=== PATIENT | female | born 1980 | race Caucasian/White ===

== ENCOUNTER 2017-02-05 15:21 | Emergency (ER) | payer OTHER ==
[~2017-02-05] VITALS: Ht 170.2 cm; Wt 86.2 kg
--- NOTE | ~2017-02-05 | EKG ---
PATIENT: OSIEL ALVARES UNIT #: [id number] Ventricular Rate: 81 BPM Atrial Rate: 81 BPM P-R Interval: 150 ms QRS Duration: 78 ms Q-T Interval: 384 ms QTC Calculation(Bezet): 446 ms P [place]: 71 degrees Calculated R [place]: -20 degrees Calculated T [place]: 49 degrees Diagnosis Line: Normal sinus rhythm with sinus arrhythmia Diagnosis Line: Poor R wave progression questionable lead position Diagnosis Line: or body habitus Diagnosis Line: Borderline ECG Diagnosis Line: No previous ECGs available Diagnosis Line: Confirmed by GOOD CANNON MD ([id number]) on Diagnosis Line: 02/07/2017 4:53:03 PM INTERPRETING MD: BENJAMIN
--- NOTE | ~2017-02-05 | CR72 ---
[facility] A Service of [facility] & [facility] RADIOLOGY TEXT RESULTS PATIENT: OSIEL ALVARES LOCATION: [facility] : [birth year] UNIT #: [id number] AGE: [address]: Sid Stone MD SEX: F ORDER DR: [id number] [facility] [address] [place], [place] [address] [id number] MR#: [id number] Acc #: [id number] NAME: OSIEL ALVARES. : 1980 SEX: F STUDY DATE/TIME: 02/05/2017 16:14 UNIT: [facility] ROOM: STUDY DESCRIPTION: CR Chest Single View Portable Attending Physician: Sid Stone M.D. Ordering Physician: Sid Stone M.D. Primary Care Physician: Meliton Chi M.D. MEDICAL IMAGING REPORT This report is preliminary unless electronic signature is present EXAM Portable chest, 02/05/2017. HISTORY 36-year-old female with congestion for 1 week. Bilateral lower extremity edema. COMPARISON Chest, 12/28/2015. FINDINGS Frontal chest demonstrates clear lungs. No pleural effusion or pneumothorax. Heart size and mediastinum are normal. Pulmonary vasculature normal. IMPRESSION No acute cardiopulmonary findings. Dictated by... Mainor Zepeda M.D. THIS IS AN ELECTRONICALLY VERIFIED REPORT Mainor Zepeda M.D. at 02/07/2017 10:49 AM SHARONDA/mahnaz TD: 02/06/2017 16:56 JOB #: [id number] MEDICAL IMAGING REPORT Page 1 of 1 COPY
[~2017-02-05 15:21] MED LIST: BACTRIM DS TABL1 TA1 PO; KEFLEX500 M2 PO; SEROQUEL XR200 MG PO
[2017-02-05 17:23] LABS: POC - CKMB 1.1 ng/mL (0.0-7.9); POC - TROPONIN <0.05 ng/mL (<=0.05)
[2017-02-05 17:42] LABS: BASOPHIL% 0.6 % (0-2.5); EOSINOPHIL# 0.1 X10e3 (0-0.7); EOSINOPHIL% 1.2 % (0.0-7.0); HEMATOCRIT 39.7 % (35.0-45.0); HEMOGLOBIN 13.7 gm/dL (12.0-16.0); LYMPHOCYTE# 2.2 X10e3 (1.0-3.5); LYMPHOCYTE% 31.7 % (17.0-45.0); MEAN CELL VOLUME 93.6 FL (83-96); MEAN CORPUSCULAR HEMOGLOBIN 32.3 PG (28-34); MEAN CORPUSCULAR HGB CONC 34.4 g/dL (30-36); MEAN PLATELET VOLUME 7.3 FL (6.5-11.5); MONOCYTE# 0.6 X10e3 (0-1.0); MONOCYTE% 9.3 % (3.0-12.0); NEUTROPHIL# 3.9 X10e3 (1.5-7.1); NEUTROPHIL% 57.2 % (40-75); PLATELET COUNT 279 X10e3 (140-420); RED BLOOD COUNT 4.24 X10e (3.90-5.30); RED CELL DISTRIBUTION WIDTH 12.1 % (11.0-15.5); WHITE BLOOD COUNT 6.9 X10e3 (4.0-10.5)
[2017-02-05 17:45] LABS: DIFF IND NO
[2017-02-05 18:07] LABS: ALBUMIN SERUM 4.1 g/dL (3.5-5.0); BILIRUBIN, DIRECT 0.2 mg/dL (0.0-0.2); BILIRUBIN,INDIRECT 0.8 mg/dL (0.0-0.9); BUN/CREATININE RATIO 6.25; CALCIUM SERUM 9.3 mg/dL (8.4-10.2); CREATININE SERUM 0.8 mg/dL (0.6-1.4); GLOM FILT RATE Estimated 94.9 mL/min (>60); POTASSIUM 3.3 mmol/L (3.5-5.1); PROTEIN TOTAL SERUM 7.7 g/dL (6.0-8.3)
== END 2017-02-05 18:41 | disposition home or self-care (01) ==
LOC: CED 15:21
PROVIDERS: Emergency Medicine
DX: R60.0 Localized edema (principal); F17.210 Nicotine dependence, cigarettes, uncomplicated; G40.909 Epilepsy, unspecified, not intractable, without status epilepticus
CPT/HCPCS: 36415; 71010; 80048; 80076; 82553; 83880; 84484; 84703; 85025; 85379; 93005; 99284